=== PATIENT | female | born 1985 | race Caucasian/White ===

== ENCOUNTER 2016-10-28 07:48 | Inpatient (IN) | payer OTHER ==
[2016-10-28] MEDS ORDERED: LIDOCAINE HCL/PF 1% 30 ML VIAL SUBCUT PRN (08:24)
[2016-10-28] MEDS ORDERED: FENTANYL 100 MCG/2 ML VIAL IV ONE (08:24)
[2016-10-28] MEDS ORDERED: OXYTOCIN/NORMAL SALINE 30 UNIT/500 ML BAG IV SCH ×2 (08:24→22:52)
[2016-10-28] MEDS ORDERED: MISOPROSTOL 200 MCG TABLET PO PRN ×4 (08:24→22:52)
[2016-10-28] MEDS ORDERED: HOME MEDICATION LIST NEEDED 1 EA EACH MC ONE (08:24)
[2016-10-28] MEDS ORDERED: FENTANYL 100 MCG/2 ML VIAL IV PRN (08:24)
[2016-10-28] MEDS ORDERED: ONDANSETRON HCL 4 MG/2 ML VIAL IV PRN (08:24)
[2016-10-28] MEDS ORDERED: LACTATED RINGERS 2,000 ML IV ONE (08:49)
[2016-10-28] MEDS: LACTATED RINGERS 1,000 ML IV SCH ×3 (09:00→20:03)
[2016-10-28 09:16] LABS: BASOPHILS 0.3 % (0.0-2.0); EOSINOPHILS 0.5 % (0.0-6.0); EOSINOPHILS# 0.1 X 10^3uL (0.0-0.4); HEMATOCRIT 34.8 % (36.0-48.0); HEMOGLOBIN 11.7 g/dL (12.0-16.0); LYMPHOCYTES 19.4 % (20.0-40.0); LYMPHOCYTES# 2.2 X 10^3uL (0.8-3.8); MEAN CELL VOLUME 85.5 fL (80.0-100.0); MEAN CORPUS. HGB CONCENTRATION 33.5 g/dL (32.0-36.0); MEAN CORPUSCULAR HEMOGLOBIN 28.7 pg (29.0-35.0); MEAN PLATELET VOLUME 7.9 fL (7.4-10.4); MONOCYTES 6.1 % (2.0-10.0); MONOCYTES# 0.7 X 10^3uL (0.2-1.0); NEUTROPHILS 73.7 % (54.0-75.0); NEUTROPHILS# 8.2 X 10^3uL (2.6-6.7); PLATELET COUNT 306 X 10^3uL (130-440); RED BLOOD COUNT 4.07 X 10^6uL (4.20-6.10); RED CELL DISTRIBUTION WIDTH 14.1 % (11.5-14.5); WHITE BLOOD COUNT 11.2 X 10^3uL (3.9-10.7)
[2016-10-28 09:22] LABS: A/G RATIO 0.9; ALBUMIN 3.2 g/dL (3.5-5.0); ALKALINE PHOSPHATASE 153 U/L (38-126); ALT 44 U/L (9-52); AST 33 U/L (14-36); BILIRUBIN, TOTAL 0.2 mg/dL (0.2-1.3); BLOOD UREA NITROGEN 11 mg/dL (7-17); CALCIUM 9.4 mg/dL (8.4-10.2); CHLORIDE 109 mmol/L (98-107); EST GLOMERULAR FILTRATION RATE > 60 mL/min; GLUCOSE 82 mg/dL (70-100); POTASSIUM 3.8 mmol/L (3.5-5.1); SODIUM 138 mmol/L (137-145); TOTAL PROTEIN 6.7 g/dL (6.3-8.2); URIC ACID 5.9 mg/dL (2.5-6.2)
--- NOTE | 2016-10-28 09:40 | PROGRESS NOTE:Antepartum ---
Assessment and Plan - Date of Encounter Date of Encounter: 10/28/16 (1) Obesity complicating in first trimester Status: Acute Assessment and plan: Now with SROM of clear fluid. Starting to have increased contractions. Elevated initial BP which improved some with rest. Will admit for labor care and delivery. Augment labor as indicated. Monitor BP and initiate Magnesium if indicated. Plan discussed with patient and spouse, they understand and agree. 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 She reports good movement. She notes her contractions are increasing. Her has been complicated by obesity put has otherwise been unremarkable. She had a normal quad screen. She has had normal ultrasound. She is group B strep negative. On initial evaluation when she arrived to the hospital her blood pressure was noted to be elevated but decreased with rest. She has had no evidence of preeclampsia at her visits. She does have significant edema but no headaches, scotomata, abdominal pain. Initial urine dip was 2+ protein however was contaminated with amniotic fluid. Laboratory data reveals no evidence of HELLP syndrome. Her past medical history is unremarkable she did have chickenpox as a child. She is received both her flu vaccine and her tetanus vaccine. 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 Absent: tenderness Abdomen: Present: soft. Absent: tenderness Cervical Dilatation Degree: 2 Cervical Effacement Percentage: 50 Station: -3 Additional Comments: Grossly ruptured, examination per RN - Lab Labs: Laboratory Last Values WBC 11.2 X 10^3uL (3.9-10.7) H 10/28/16 08:45 RBC 4.07 X 10^6uL (4.20-6.10) L 10/28/16 08:45 Hgb 11.7 g/dL (12.0-16.0) L 10/28/16 08:45 Hct 34.8 % (36.0-48.0) L 10/28/16 08:45 MCV 85.5 fL (80.0-100.0) 10/28/16 08:45 MCH 28.7 pg (29.0-35.0) L 10/28/16 08:45 MCHC 33.5 g/dL (32.0-36.0) 10/28/16 08:45 RDW 14.1 % (11.5-14.5) 10/28/16 08:45 Plt Count 306 X 10^3uL (130-440) 10/28/16 08:45 MPV 7.9 fL (7.4-10.4) 10/28/16 08:45 Neutrophils % 73.7 % (54.0-75.0) 10/28/16 08:45 Lymphocytes % 19.4 % (20.0-40.0) L 10/28/16 08:45 Eosinophils % 0.5 % (0.0-6.0) 10/28/16 08:45 Basophils % 0.3 % (0.0-2.0) 10/28/16 08:45 Neutrophils # 8.2 X 10^3uL (2.6-6.7) H 10/28/16 08:45 Lymphocytes # 2.2 X 10^3uL (0.8-3.8) 10/28/16 08:45 Monocytes 6.1 % (2.0-10.0) 10/28/16 08:45 Monocytes # 0.7 X 10^3uL (0.2-1.0) 10/28/16 08:45 Eosinophils # 0.1 X 10^3uL (0.0-0.4) 10/28/16 08:45 Basophils # 0.0 X 10^3uL (0.0-0.1) 10/28/16 08:45 Sodium 138 mmol/L (137-145) 10/28/16 08:45 Potassium 3.8 mmol/L (3.5-5.1) 10/28/16 08:45 Chloride 109 mmol/L (98-107) H 10/28/16 08:45 Carbon Dioxide 19 mmol/L (22-30) L 10/28/16 08:45 BUN 11 mg/dL (7-17) 10/28/16 08:45 Creatinine 0.9 mg/dL (0.5-1.0) 10/28/16 08:45 GFR Calculation > 60 mL/min 10/28/16 08:45 Glucose 82 mg/dL (70-100) 10/28/16 08:45 Uric Acid 5.9 mg/dL (2.5-6.2) 10/28/16 08:45 Calcium 9.4 mg/dL (8.4-10.2) 10/28/16 08:45 Total Bilirubin 0.2 mg/dL (0.2-1.3) 10/28/16 08:45 AST 33 U/L (14-36) 10/28/16 08:45 ALT 44 U/L (9-52) 10/28/16 08:45 Alkaline Phosphatase 153 U/L (38-126) H 10/28/16 08:45 Total Protein 6.7 g/dL (6.3-8.2) 10/28/16 08:45 Albumin 3.2 g/dL (3.5-5.0) L 10/28/16 08:45 Albumin/Globulin Ratio 0.9 10/28/16 08:45
[2016-10-28 09:50] LABS: ANTIBODY SCREEN NEGATIVE
[2016-10-28] MEDS ORDERED: BUPIVACAINE HCL/PF 0.5% 30 ML VIAL ONE (11:50)
[2016-10-28] MEDS ORDERED: ROPIVACAINE HCL IN 0.9%NACL/PF 120 MG/60 ML SYRINGE ONE ×2 (11:50→17:26)
[2016-10-28] MEDS ORDERED: PHENYLEPHRINE HCL 10,000 MCG/ML VIAL ONE (11:51)
--- NOTE | 2016-10-28 15:05 | PROGRESS NOTE:Antepartum ---
Assessment and Plan - Date of Encounter Date of Encounter: 10/28/16 (1) Obesity complicating in first trimester Status: Acute Assessment and plan: UPC 0.1. No evidence of preeclampsia. Progressing well. 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 Patient reports: pain well controlled, no nausea Antepartum ROS: no headache, no visual changes ADMINISTRATIVE SUPPORT TECHNICIAN: Antepartum PN Obj Exam - Latest Vital Signs and I&O Latest Vital Signs/I&O: Vital Signs Temp 36.3 C L 10/28/16 14:25 Pulse 94 H 10/28/16 14:25 Resp 16 10/28/16 14:25 BP 123/73 10/28/16 14:25 Pulse Ox 99 10/28/16 14:25 Intake & Output 10/27/16 10/28/16 10/28/16 17:59 05:59 17:59 Output Total 400 Balance -400 Weight 140.614 kg Output: Urine 400 Other: Urine Color Pale Yellow Uretheral (Samson) Pale Yellow Voiding Method Toilet - Exam Heart Monitor: category I Extremities: Present: edema (2+). Absent: tenderness Abdomen: Present: soft. Absent: tenderness Cervical Dilatation Degree: 6 Cervical Effacement Percentage: 80 Station: +1 Additional Comments: Exam per RN - Lab Labs: Laboratory Last Values WBC 11.2 X 10^3uL (3.9-10.7) H 10/28/16 08:45 RBC 4.07 X 10^6uL (4.20-6.10) L 10/28/16 08:45 Hgb 11.7 g/dL (12.0-16.0) L 10/28/16 08:45 Hct 34.8 % (36.0-48.0) L 10/28/16 08:45 MCV 85.5 fL (80.0-100.0) 10/28/16 08:45 MCH 28.7 pg (29.0-35.0) L 10/28/16 08:45 MCHC 33.5 g/dL (32.0-36.0) 10/28/16 08:45 RDW 14.1 % (11.5-14.5) 10/28/16 08:45 Plt Count 306 X 10^3uL (130-440) 10/28/16 08:45 MPV 7.9 fL (7.4-10.4) 10/28/16 08:45 Neutrophils % 73.7 % (54.0-75.0) 10/28/16 08:45 Lymphocytes % 19.4 % (20.0-40.0) L 10/28/16 08:45 Eosinophils % 0.5 % (0.0-6.0) 10/28/16 08:45 Basophils % 0.3 % (0.0-2.0) 10/28/16 08:45 Neutrophils # 8.2 X 10^3uL (2.6-6.7) H 10/28/16 08:45 Lymphocytes # 2.2 X 10^3uL (0.8-3.8) 10/28/16 08:45 Monocytes 6.1 % (2.0-10.0) 10/28/16 08:45 Monocytes # 0.7 X 10^3uL (0.2-1.0) 10/28/16 08:45 Eosinophils # 0.1 X 10^3uL (0.0-0.4) 10/28/16 08:45 Basophils # 0.0 X 10^3uL (0.0-0.1) 10/28/16 08:45 PT 12.8 sec (13.0-16.6) L 10/28/16 09:00 PTT 30 sec (24-38) 10/28/16 09:00 Sodium 138 mmol/L (137-145) 10/28/16 08:45 Potassium 3.8 mmol/L (3.5-5.1) 10/28/16 08:45 Chloride 109 mmol/L (98-107) H 10/28/16 08:45 Carbon Dioxide 19 mmol/L (22-30) L 10/28/16 08:45 BUN 11 mg/dL (7-17) 10/28/16 08:45 Creatinine 0.9 mg/dL (0.5-1.0) 10/28/16 08:45 GFR Calculation > 60 mL/min 10/28/16 08:45 Glucose 82 mg/dL (70-100) 10/28/16 08:45 Uric Acid 5.9 mg/dL (2.5-6.2) 10/28/16 08:45 Calcium 9.4 mg/dL (8.4-10.2) 10/28/16 08:45 Total Bilirubin 0.2 mg/dL (0.2-1.3) 10/28/16 08:45 AST 33 U/L (14-36) 10/28/16 08:45 ALT 44 U/L (9-52) 10/28/16 08:45 Alkaline Phosphatase 153 U/L (38-126) H 10/28/16 08:45 Total Protein 6.7 g/dL (6.3-8.2) 10/28/16 08:45 Albumin 3.2 g/dL (3.5-5.0) L 10/28/16 08:45 Albumin/Globulin Ratio 0.9 10/28/16 08:45 Urine Protein 9 mg/dL (<12) 10/28/16 12:45 Urine Creatinine 84.7 mg/dL 10/28/16 12:45 Antibody Screen Negative 10/28/16 08:45
--- NOTE | 2016-10-28 19:35 | PROCEDURE NOTE: Vaginal Del ---
OB Procedure Vaginal Delivery - Vaginal Delivery Estimated Gestational Age (weeks): 39 (04/22) Delivery Presentation: vertex Heart Monitor: category I Intrapartum Events: none Delivery Induction: none Amniotic Fluid: clear Delivery Monitor: external FHT, external uterine Shoulders: without difficulty Placenta delivered: yes Delivery Placenta: expressed Delivery Cord: 3 Vessels Nuchal Cord # of Loops: 0 Cord clamped: Yes (when done pulsating) Cord blood obtained: Yes Episiotomy: none Delivery Laceration: perineal laceration, periurethral laceration, 1st degree Suture Type for Laceration Repair: 3.0 Vicryl at 1 minute: 8 at 5 minutes: 9 Infant Gender: Female [place] Weight: 3.744 kg Estimate Blood Loss Delivery: 500cc Anesthesia: Epidural Delivery Complications: Present: uterine atony (treated with massage, IV oxytocin and sublingual misoprostol)
[2016-10-28] MEDS ORDERED: ACETAMINOPHEN 325 MG TABLET PO ONE (22:08)
[2016-10-28] MEDS ORDERED: BENZOCAINE/LANOLIN/ALOE 1 SPRAY BOTTLE TOPICAL PRN (22:52)
[2016-10-28] MEDS ORDERED: MAGNESIUM HYDROXIDE 30 ML UDC PO PRN (22:52)
[2016-10-28] MEDS ORDERED: HOME MEDICATION LIST NEEDED 1 EA EACH MISC ONE (22:52)
[2016-10-28] MEDS ORDERED: LANOLIN CREAM 1 APP/7 GM TUBE TOPICAL PRN (22:52)
[2016-10-28] MEDS ORDERED: DIPHENHYDRAMINE 25 MG CAPSULE PO PRN (22:52)
[2016-10-29] MEDS: IBUPROFEN 600 MG TABLET PO PRN ×3 (00:44→17:31)
[2016-10-29] MEDS: DOCUSATE SODIUM 100 MG CAPSULE PO SCH ×3 (00:44→21:43)
[2016-10-29] MEDS ORDERED: WITCH HAZEL 1 EACH MED..PAD TOPICAL ONE (00:56)
[2016-10-29] MEDS: ACETAMINOPHEN/CODEINE 300/30MG 1 TAB TABLET PO PRN ×4 (04:55→21:44)
[2016-10-29 05:21] LABS: HEMATOCRIT 31.5 % (36.0-48.0); HEMOGLOBIN 10.6 g/dL (12.0-16.0)
--- NOTE | 2016-10-29 12:20 | PROGRESS NOTE:Vaginal Delivery ---
Assessment and Plan - Date of Encounter Date of Encounter: 10/29/16 (1) care following vaginal delivery Problem details: S/P with repair of lacerations Status: Acute Assessment and plan: Doing well. Plan routine PP care. 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 Subjective Post- Day: 1 Patient reports: voiding normally, pain well controlled, ambulating normally, no nausea [place]: doing well, nursing well DITCH TENDER: Vag Del PN Obj Exam - Latest Vital Signs and I&O Latest Vital Signs/I&O: Vital Signs Temp 36.1 C L 10/29/16 09:08 Pulse 82 10/29/16 09:08 Resp 18 10/29/16 09:08 BP 110/77 10/29/16 09:08 Pulse Ox 100 10/29/16 09:08 Intake & Output 10/28/16 10/29/16 10/29/16 17:59 05:59 17:59 Output Total 1100 900 200 Balance -1100 -900 -200 Weight 140.614 kg Output: Urine 1100 900 200 Other: Urine Appearance Clear Clear Cloudy Urine Color Yellow Perkins Perkins Uretheral (Samson) Pale Yellow Voiding Method Indwelling Catheter Toilet Toilet # Voids 1 - Exam Heart Rhythm: Present: regular Extremities: Present: edema. Absent: tenderness Abdomen: Present: soft. Absent: tenderness Uterus: Present: firm, non tender - Lab Labs: Laboratory Last Values WBC 11.2 X 10^3uL (3.9-10.7) H 10/28/16 08:45 RBC 4.07 X 10^6uL (4.20-6.10) L 10/28/16 08:45 Hgb 10.6 g/dL (12.0-16.0) L 10/29/16 05:10 Hct 31.5 % (36.0-48.0) L 10/29/16 05:10 MCV 85.5 fL (80.0-100.0) 10/28/16 08:45 MCH 28.7 pg (29.0-35.0) L 10/28/16 08:45 MCHC 33.5 g/dL (32.0-36.0) 10/28/16 08:45 RDW 14.1 % (11.5-14.5) 10/28/16 08:45 Plt Count 306 X 10^3uL (130-440) 10/28/16 08:45 MPV 7.9 fL (7.4-10.4) 10/28/16 08:45 Neutrophils % 73.7 % (54.0-75.0) 10/28/16 08:45 Lymphocytes % 19.4 % (20.0-40.0) L 10/28/16 08:45 Eosinophils % 0.5 % (0.0-6.0) 10/28/16 08:45 Basophils % 0.3 % (0.0-2.0) 10/28/16 08:45 Neutrophils # 8.2 X 10^3uL (2.6-6.7) H 10/28/16 08:45 Lymphocytes # 2.2 X 10^3uL (0.8-3.8) 10/28/16 08:45 Monocytes 6.1 % (2.0-10.0) 10/28/16 08:45 Monocytes # 0.7 X 10^3uL (0.2-1.0) 10/28/16 08:45 Eosinophils # 0.1 X 10^3uL (0.0-0.4) 10/28/16 08:45 Basophils # 0.0 X 10^3uL (0.0-0.1) 10/28/16 08:45 PT 12.8 sec (13.0-16.6) L 10/28/16 09:00 PTT 30 sec (24-38) 10/28/16 09:00 Sodium 138 mmol/L (137-145) 10/28/16 08:45 Potassium 3.8 mmol/L (3.5-5.1) 10/28/16 08:45 Chloride 109 mmol/L (98-107) H 10/28/16 08:45 Carbon Dioxide 19 mmol/L (22-30) L 10/28/16 08:45 BUN 11 mg/dL (7-17) 10/28/16 08:45 Creatinine 0.9 mg/dL (0.5-1.0) 10/28/16 08:45 GFR Calculation > 60 mL/min 10/28/16 08:45 Glucose 82 mg/dL (70-100) 10/28/16 08:45 Uric Acid 5.9 mg/dL (2.5-6.2) 10/28/16 08:45 Calcium 9.4 mg/dL (8.4-10.2) 10/28/16 08:45 Total Bilirubin 0.2 mg/dL (0.2-1.3) 10/28/16 08:45 AST 33 U/L (14-36) 10/28/16 08:45 ALT 44 U/L (9-52) 10/28/16 08:45 Alkaline Phosphatase 153 U/L (38-126) H 10/28/16 08:45 Total Protein 6.7 g/dL (6.3-8.2) 10/28/16 08:45 Albumin 3.2 g/dL (3.5-5.0) L 10/28/16 08:45 Albumin/Globulin Ratio 0.9 10/28/16 08:45 Urine Protein 9 mg/dL (<12) 10/28/16 12:45 Urine Creatinine 84.7 mg/dL 10/28/16 12:45 Antibody Screen Negative 10/28/16 08:45
[2016-10-30 02:52] VITALS: RESP 18
[2016-10-30] MEDS: DOCUSATE SODIUM 100 MG CAPSULE PO SCH ×2 (03:40→08:09)
[2016-10-30] MEDS: IBUPROFEN 600 MG TABLET PO PRN (08:09)
[2016-10-30] MEDS: ACETAMINOPHEN/CODEINE 300/30MG 1 TAB TABLET PO PRN (08:09)
--- NOTE | 2016-10-30 08:23 | DC SUMMARY: Obstetrical/GYN ---
Discharge Summary: Surg/OB Provider: Date of Admission: 10/28/16 Admitting Provider: MEDHAT GARCIA MD Attending Provider: MEDHAT GARCIA MD Discharging Provider: MEDHAT GARCIA MD Primary Care Provider: Discharge Date: 10/30/16 - Diagnosis (1) care following vaginal delivery Status: Acute Hospital Course: Ms. BRIDGES is a 30 year old G1 female who presented with complaints of ruptured membranes revealing clear fluid. She was having mild regular contractions. She was admitted for labor care and delivery. She progressed spontaneously and an epidural catheter was placed and dosed at her request. She had an obstetrically assisted vaginal delivery with repair of periurethral and superficial vaginal/perineal laceration. Her course was unremarkable. She is discharged home in good condition. Discharge - Patient/Caregiver Discharge Instructions Activity Level: Pelvic rest Diet: Regular Additional Instructions: Medhat Garcia M.D. INSTRUCTIONS 1. Please make an appointment to see me for a checkup two weeks and six weeks after delivery. Call the clinic to make these appointments. Do not hesitate to call me, or my nurse, with any questions or problems regarding gynecological care or breast feeding. 2. It would be best for you to restrict your activities to caring for yourself and your baby for the first week. As you feel up to it, you may increase your activity. Use your own judgment, listen to your body, and take frequent short rests as you become tired. 3. If needed you will receive a prescription for pain pills upon hospital discharge. Generally ibuprofen is adequate after vaginal delivery for discomfort. If needed, take as directed. If necessary, you may drive a car a short distance after 1 -2 weeks. Use good judgment. Do not drive a car or operate machinery as long as you are taking narcotic pain medication. 4. You may climb stairs but try to make the trip worthwhile. Do not walk up and down excessively. 5. If you are breast feeding, wear a well supporting bra day and night (a maternity or sports bra). Use the lanolin or yohan cream provided to you after each feeding. It does not need to be washed off before you feed your baby. Do not use soap on your nipples; wash them with clear water. Wash your hands before you handle your baby or your breasts. Do not allow your nipples to become caked with milk or to be constantly wet with milk that leaks between feedings. 6. To help prevent complications with : a)Ensure good position and latch b)Ensure feeding on demand c)Empty breasts fully d)Use hand expression to help relieve fullness e)Expose breast engorgement to warm water by shower or basin f)Call if unrelieved or if you have questions Melanie Aldrich : Marisela Melton, ___[phone] Hieu Garces, ___ 7. If you are not breast feeding, wear a well supporting bra day and night for at least two full weeks. Should your breasts become full, apply ice packs and avoid stimulation to your breasts. This full feeling may last for 2-3 days and then gradually subside. 8. Start your Kegel exercises at home. Walking should start immediately but limit your normal exercise program until after your six-week check up. 9. Bleeding may be heavier after activity. If your bleeding does not slow down after resting, please notify me immediately. 10. Sitting in three inches of warm water with Epsom salt for 15 minutes, three times per day will help ease the discomfort from your episiotomy. The episiotomy will be healed in about three weeks. The stitches will dissolve. Small superficial skin separations should not cause anxiety, as they heal quickly. 11. Vaginal discharge is usually bright red for two to four days following delivery, and then becomes pinkish or dark red in four to ten days. The vaginal flow will gradually subside. You may have intermittent episodes of increased bleeding and may pass a few clots. The bleeding should not be heavier than a normal period for more than a few days. Use only mini or maxi pads. Vaginal discharge may last four to eight weeks. Call me if bleeding seems excessive. No tampons, douching or intercourse until your bleeding stops. 12. Eat a well-balanced diet. You should drink 6-8 glasses of fluid per day and eat the same kind of diet you were on during your . Fresh fruits, green leafy vegetables, bran cereals and whole wheat breads should be eaten to prevent constipation. If necessary, stool softeners may be obtained at the pharmacy without a prescription. Use as directed. Milk of Magnesia may be used for constipation. 13. Continue taking your vitamins and iron for one month. If you are breast feeding, continue taking your vitamins as long as you breast feed. If you are breast feeding be very cautious about taking medications not prescribed by me. Always inform your physician that you are breast feeding before he or she prescribes any medication for you. 14. Report any vomiting or fever above 100.5 degrees. It is not necessary to take your temperature daily, but if you feel like you have a fever, take your temperature and call me if necessary. 15. I can be reached through the hospital charge nurse ([phone]) or the hospital crusher and blender operator ([phone]). If no one answers, please leave your name and number and expect a return phone call in 30 minutes. Medhat Garcia M.D. 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 Absent: tenderness Abdomen: Present: soft. Absent: tenderness Uterus: Present: firm, non tender Discharge Summary Data - Medication History Medication History: Home Medications Vit W-Ca,Fe,FA(<1 mg) [ Vitamins] 1 tab PO DAILY 10/05/16 Inpatient Medications 10/28/16 22:52 Acetaminophen/Codeine 300/30Mg [Tylenol with Codeine #3] 1 - 2 tab PO Q3H PRN Benzocaine/Lanolin/Aloe [Dermoplast Labelle] 1 spray TOPICAL PRN PRN Diphenhydramine [Benadryl] 50 mg PO HS PRN Ibuprofen [Motrin] 600 mg PO Q6H PRN Lanolin Cream [Lansinoh] 1 daniel TOPICAL PRN PRN Magnesium Hydroxide [Milk of Magnesia] 30 ml PO PRN PRN Misoprostol [Cytotec] 600 mcg PO ONCE PRN Misoprostol [Cytotec] 800 mcg PO ONCE PRN Oxytocin/Normal Saline [Pitocin/Ns 30 Unit/500 ml] 30 unit IV CONT 10/28/16 23:00 Docusate Sodium [Colace] 100 mg PO Q12H Procedures and tests throughout hospitalization: Completed Lab Orders 10/28/16 08:45 ANTIBODY SCREEN [HEM] Stat CBC AUTO DIF, MDIF/RMOR IF IND [HEM] Stat COMPREHENSIVE METABOLIC PANEL [CHEM] Stat URIC ACID [CHEM] Stat 10/28/16 09:00 PROTIME [HEM] Stat ptt [PARTIAL THROMBOPLASTIN TIME] [HEM] Stat 10/28/16 12:45 URINE CREATININE,RANDOM [CHEM] Stat URINE PROTEIN,RANDOM [CHEM] Stat 10/29/16 05:10 HGB & HCT PANEL [HEM] AMDRAW Pending Orders 10/23/16 18:13 Resuscitation Status Routine 10/28/16 08:24 Admit: Inpatient Routine VTE Prophylaxis Scoring/ Ordering Routine Straight Cath PRN 10/28/16 22:52 May shower Post Assessment PER PROTOCOL Vital Signs Acetaminophen/Codeine 300/30Mg [Tylenol with Codeine #3] 1 - 2 tab PO Q3H PRN Benzocaine/Lanolin/Aloe [Dermoplast Labelle] 1 spray TOPICAL PRN PRN Diphenhydramine [Benadryl] 50 mg PO HS PRN Ibuprofen [Motrin] 600 mg PO Q6H PRN Lanolin Cream [Lansinoh] 1 daniel TOPICAL PRN PRN Magnesium Hydroxide [Milk of Magnesia] 30 ml PO PRN PRN Misoprostol [Cytotec] 600 mcg PO ONCE PRN Misoprostol [Cytotec] 800 mcg PO ONCE PRN Oxytocin/Normal Saline [Pitocin/Ns 30 Unit/500 ml] 30 unit IV CONT 10/28/16 23:00 Docusate Sodium [Colace] 100 mg PO Q12H 10/28/16 Dinner Regular [DIET] 10/29/16 Dinner Special Meal (NLC)
[2016-10-30 09:56] VITALS: BP 122/87; PULSE 108; TEMP 97; O2SAT 93
== END 2016-10-30 10:15 | disposition home or self-care (01) | DRG 775 ==
LOC: NLCPRO 07:48 → NLC 08:43
PROVIDERS: ADMIT Obstetrics & Gynecology; ATTEND Obstetrics & Gynecology
PROC: 0HQ9XZZ Repair Perineum Skin, External Approach (ICD-10-PCS; principal; 2016-10-28)
PROC: 10E0XZZ Delivery of Products of Conception, External Approach (ICD-10-PCS; principal; 2016-10-28)
DX: O99.211 Obesity complicating pregnancy, first trimester (principal); O70.0 First degree perineal laceration during delivery; E66.09 Other obesity due to excess calories; Z3A.39 39 weeks gestation of pregnancy; Z37.0 Single live birth
CPT/HCPCS: 36415; 80053; 82570; 84156; 84550; 85014; 85018; 85025; 85610; 85730; 86850; J2370; J2405; J2795; J7120